=== PATIENT | female | born 1965 | race Caucasian/White ===

== ENCOUNTER 2016-08-17 09:25 | Emergency (ER) | payer OTHER ==
--- NOTE | ~2016-08-17 | EKG ---
PATIENT: EMMANUELLE BURLESON UNIT #: [id number] Ventricular Rate: 76 BPM Atrial Rate: 76 BPM P-R Interval: 132 ms QRS Duration: 78 ms Q-T Interval: 390 ms QTC Calculation(Bezet): 438 ms P [place]: 58 degrees Calculated R [place]: 65 degrees Calculated T [place]: 64 degrees Diagnosis Line: Normal sinus rhythm Diagnosis Line: Normal ECG Diagnosis Line: No previous ECGs available Diagnosis Line: Confirmed by JUDAH BEASLEY MD ([id number]) on Diagnosis Line: 08/20/2016 8:30:42 AM INTERPRETING MD: RAMOS POST
--- NOTE | ~2016-08-17 | CR72 ---
[facility] A Service of [facility] & [facility] RADIOLOGY TEXT RESULTS PATIENT: EMMANUELLE BURLESON LOCATION: SED : 69 UNIT #: [id number] AGE: [address]: Leo Villanueva MD SEX: F ORDER DR: [id number] [place] [id number] E MR#: [id number] Acc #: [id number] NAME: EMMANUELLE BURLESON : 1965 SEX: F STUDY DATE/TIME: 08/17/2016 10:15 UNIT: SED ROOM: STUDY DESCRIPTION: CR Chest Single View Portable Attending Physician: Leo Villanueva M.D. Ordering Physician: Leo Villanueva M.D. MEDICAL IMAGING REPORT This report is preliminary unless electronic signature is present. EXAM Portable chest INDICATIONS Shortness of breath since last night. COMPARISON STUDIES There are no comparison studies available. FINDINGS There is emphysema in the lungs, greatest in the right upper lobe area. No acute infiltrate. Heart size normal. Suspected prominent nipple shadow on the right. IMPRESSION Emphysema. No acute finding. Dictated by... Rob Lopez M.D. THIS IS AN ELECTRONICALLY VERIFIED REPORT Rob Lopez M.D. at 08/18/2016 7:50 AM MACRINA/aishwarya TD: 08/17/2016 14:04 JOB #: [id number] MEDICAL IMAGING REPORT Page 1 of 1
[~2016-08-17 09:25] MED LIST: NO MEDICATIONS; VOLTAREN75 MG PO
[2016-08-17] MEDS ORDERED: ZYRTEC10 M1 (09:31)
[2016-08-17] MEDS ORDERED: ALBUTEROL17 GM (09:31)
[2016-08-17] MEDS ORDERED: SYMBICORT80 (09:31)
[2016-08-17 10:10] LABS: BASOPHIL# 0.1 X10e3 (0-0.3); BASOPHIL% 1.3 % (0-2.5); DIFF IND NO; EOSINOPHIL# 0.1 X10e3 (0-0.7); EOSINOPHIL% 1.6 % (0.0-7.0); HEMATOCRIT 44.4 % (35.0-45.0); HEMOGLOBIN 15.3 gm/dL (12.0-16.0); LYMPHOCYTE# 1.8 X10e3 (1.0-3.5); LYMPHOCYTE% 21.4 % (17.0-45.0); MEAN CORPUSCULAR HEMOGLOBIN 31.3 PG (28-34); MEAN CORPUSCULAR HGB CONC 34.4 g/dL (30-36); MEAN PLATELET VOLUME 8.4 FL (6.5-11.5); MONOCYTE# 0.8 X10e3 (0-1.0); MONOCYTE% 9.7 % (3.0-12.0); NEUTROPHIL# 5.6 X10e3 (1.5-7.1); PLATELET COUNT 249 X10e3 (140-420); RED BLOOD COUNT 4.89 X10e (3.90-5.30); RED CELL DISTRIBUTION WIDTH 12.8 % (11.0-15.5); WHITE BLOOD COUNT 8.5 X10e3 (4.0-10.5)
[2016-08-17 10:10] LABS: POC - CKMB <1.0 ng/mL (0.0-7.9); POC - TROPONIN <0.05 ng/mL (<=0.05)
[2016-08-17 10:24] LABS: PARTIAL THROMBOPLASTIN TIME 29.8 SECONDS (25.6-38.1)
[2016-08-17 10:25] LABS: ALKALINE PHOSPHATASE 48 U/L (32-92); ALT (SGPT) 15 U/L (10-40); AST (SGOT) 20 U/L (10-42); BILIRUBIN,TOTAL 0.2 mg/dL (0.2-2.0); BLOOD UREA NITROGEN 9 mg/dL (9-23); BUN/CREATININE RATIO 12.85; CALCIUM SERUM 9.1 mg/dL (8.4-10.2); CARBON DIOXIDE 22 mmol/L (22-31); CHLORIDE 107 mmol/L (100-111); CREATININE SERUM 0.7 mg/dL (0.6-1.4); GLOM FILT RATE Estimated 101.7 mL/min (>60); GLUCOSE FASTING 104 mg/dL (70-110); POTASSIUM 3.5 mmol/L (3.5-5.1); PROTEIN TOTAL SERUM 7.6 g/dL (6.0-8.3); SODIUM 137 mmol/L (135-145)
[2016-08-17 10:30] LABS: BILIRUBIN, DIRECT <0.1 mg/dL (0.0-0.2); BILIRUBIN,INDIRECT 0.1 mg/dL (0.0-0.9)
[2016-08-17 10:32] LABS: DDIMER <200 NG/ML (0-200)
[2016-08-17 11:42] LABS: POC - CKMB <1.0 ng/mL (0.0-7.9); POC - TROPONIN <0.05 ng/mL (<=0.05)
== END 2016-08-17 11:52 | disposition home or self-care (01) ==
LOC: SED 09:25
PROVIDERS: Emergency Medicine
DX: J44.9 Chronic obstructive pulmonary disease, unspecified (principal); R09.1 Pleurisy; I10 Essential (primary) hypertension; F17.200 Nicotine dependence, unspecified, uncomplicated; Z88.8 Allergy status to other drugs, medicaments and biological substances
CPT/HCPCS: 36415; 71010; 80048; 80076; 82553; 84484; 85025; 85379; 85610; 85730; 93005; 94640; 99284